=== PATIENT | female | born 1955 | race Hispanic/Latino ===

== ENCOUNTER 2022-12-25 14:37 | Emergency (ER) | payer BC, MEDICARE ==
[~2022-12-25] VITALS: Ht 149.9 cm; Wt 65.9 kg
== END 2022-12-25 16:39 | disposition short-term general hospital (02) ==
LOC: FSED 15:54
DX: M54.9 Dorsalgia, unspecified (principal); I10 Essential (primary) hypertension; Z53.21 Procedure and treatment not carried out due to patient leaving prior to being seen by health care provider
CPT/HCPCS: 81003